=== PATIENT | female | born 1975 | race Caucasian/White ===

== ENCOUNTER 2016-10-26 17:15 | Emergency (ER) | payer OTHER ==
[2016-10-26] MEDS ORDERED: OXYCODONE-ACETAMINOPHEN 5-325 MG TABLET PO ONE (18:20)
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
[2016-10-26 20:21] VITALS: BP 122/65
== END 2016-10-26 20:25 | disposition home or self-care (01) ==
LOC: ER 17:15
DX: S99.921A Unspecified injury of right foot, initial encounter (principal); M79.671 Pain in right foot; V03.00XA Pedestrian on foot injured in collision with car, pick-up truck or van in nontraffic accident, initial encounter
CPT/HCPCS: 99283

== ENCOUNTER 2017-02-10 16:32 | Observation (INO) | payer OTHER ==
[2017-02-10] MEDS ORDERED: OXYCODONE-ACETAMINOPHEN 5-325 MG TABLET PO ONE (18:04)
[2017-02-10] MEDS ORDERED: ONDANSETRON 4 MG TAB.RAPDIS PO ONE (18:05)
--- NOTE | 2017-02-10 18:07 | ER Document Report ---
ED Medical Screen (RME) - General Chief Complaint: Abdominal Pain Stated Complaint: STOMACH PAIN RIGHT SIDE Time Seen by Provider: 02/10/17 18:03 Mode of Arrival: Ambulatory Information source: Patient Notes: Patient is a 41-year-old female with right upper quadrant pain 3 days. Patient still has her gallbladder, does not have her appendix and has had a hysterectomy. Patient admits to nausea with the sharp pain that comes intermittently but states that there is always a dull pain there. She denies vomiting or diarrhea. TRAVEL OUTSIDE OF THE [place] IN LAST 30 DAYS: No - Related Data Allergies/Adverse Reactions: Penicillins Allergy (Severe, Verified 02/10/17 17:58) Past Medical History - General Information source: Patient - Social History Chew tobacco use (# tins/day): No Frequency of alcohol use: None Drug Abuse: None Neurological Medical History: Reports: Hx Migraine Renal/ Medical History: Reports: Hx Kidney Stones. Denies: Hx Peritoneal Dialysis GI Medical History: Reports: Hx Gastroesophageal Reflux Disease Musculoskeltal Medical History: Reports Hx Musculoskeletal Trauma Past Surgical History: Reports: Hx Appendectomy, Hx Section, Hx Cholecystectomy, Hx Hysterectomy, Hx Thyroid Surgery - Immunizations Immunizations up to date: Yes Hx Diphtheria, Pertussis, Tetanus Vaccination: Yes - 2010 History of Influenza Vaccine for 02/2017 - 07/2017 Season: No Review of Systems - Review of Systems Gastrointestinal: No symptoms reported Physical Exam - Vital signs Vitals: Temp Pulse Resp BP Pulse Ox 98.8 F 85 18 129/70 H 100 02/10/17 17:17 02/10/17 17:17 02/10/17 17:17 02/10/17 17:17 02/10/17 17:17 - Notes Notes: PHYSICAL EXAMINATION: GENERAL: Uncomfortable, holding right side, but in no acute distress. ABDOMEN: Soft, right upper quadrant tenderness. No guarding, no rebound Course - Vital Signs Vital signs: Temp Pulse Resp BP Pulse Ox 98.8 F 85 18 129/70 H 100 02/10/17 17:17 02/10/17 17:17 02/10/17 17:17 02/10/17 17:17 02/10/17 17:17
[2017-02-10 18:49] LABS: ABSOLUTE BASOPHILS # (AUTO) 0.1 10^3/uL (0.0-0.2); ABSOLUTE EOSINOPHILS # (AUTO) 0.2 10^3/uL (0.0-0.6); ABSOLUTE LYMPHOCYTES (AUTO) 2.2 10^3/uL (0.5-4.7); ABSOLUTE MONOCYTES (AUTO) 0.4 10^3/uL (0.1-1.4); ABSOLUTE NEUT (AUTO) 5.2 10^3/uL (1.7-8.2); BASOPHILS % (AUTO) 0.8 % (0-2); EOSINOPHILS % (AUTO) 1.9 % (0-6); HEMATOCRIT 42.2 % (36.0-47.0); HEMOGLOBIN 14.4 g/dL (12.0-15.5); LYMPHOCYTES % (AUTO) 27.7 % (13-45); MEAN CORPUSCULAR HEMOGLOBIN 29.9 pg (27.0-33.4); MEAN CORPUSCULAR HGB CONC 34.2 g/dL (32.0-36.0); MEAN CORPUSCULAR VOLUME 88 fl (80-97); MONOCYTES % (AUTO) 5.1 % (3-13); RED BLOOD COUNT 4.82 10^6/uL (3.72-5.28); RED CELL DISTRIBUTION WIDTH 13.4 % (11.5-14.0); SEGMENTED NEUTROPHILS % (AUTO) 64.5 % (42-78)
[2017-02-10 18:59] LABS: APPEARANCE,URINE SLIGHTLY-CLOUDY; BILIRUBIN,URINE NEGATIVE (NEGATIVE); GLUCOSE, URINE NEGATIVE (NEGATIVE); KETONES,URINE NEGATIVE (NEGATIVE); LEUKOCYTE ESTERASE,URINE NEGATIVE (NEGATIVE); NITRITE,URINE NEGATIVE (NEGATIVE); PROTEIN,URINE NEGATIVE (NEGATIVE); URINE SPECIFIC GRAVITY 1.028; UROBILINOGEN,URINE NEGATIVE mg/dL (<2.0)
[2017-02-10 19:09] LABS: ALANINE AMINOTRANSFERASE 28 U/L (9-52); ALBUMIN 4.5 g/dL (3.5-5.0); ALKALINE PHOSPHATASE 90 U/L (38-126); ANION GAP 12 (5-19); ASPARTATE AMINO TRANSFERASE 19 U/L (14-36); BILIRUBIN,DIRECT 0.3 mg/dL (0.0-0.4); BILIRUBIN,TOTAL 0.4 mg/dL (0.2-1.3); BLOOD UREA NITROGEN 18 mg/dL (7-20); CALCIUM 9.6 mg/dL (8.4-10.2); CARBON DIOXIDE 30 mmol/L (22-30); CHLORIDE 106 mmol/L (98-107); CREATININE RESULT 0.71 mg/dL (0.52-1.25); GLUCOSE 99 mg/dL (75-110); LIPASE 77.6 U/L (23-300); POTASSIUM 4.3 mmol/L (3.6-5.0); TOTAL PROTEIN 7.4 g/dL (6.3-8.2)
[2017-02-10] MEDS ORDERED: NORMAL SALINE 1000 ML 1,000 ML IV PRN (20:38)
[2017-02-10] MEDS ORDERED: MORPHINE SULFATE 10 MG/ML INJ IV ONE ×2 (20:39→23:26)
[2017-02-10] MEDS ORDERED: ONDANSETRON HCL INJ/PF 4 MG/2 ML SDV IV ONE ×2 (20:39→23:26)
--- NOTE | 2017-02-10 21:30 | RADIOLOGY REPORT (SQ) ---
EXAM DESCRIPTION: U/S ABDOMEN LIMITED W/O DOP COMPLETED DATE/TIME: 02/10/2017 9:18 pm REASON FOR STUDY: ruq pain COMPARISON: 07/11/2015 TECHNIQUE: Dynamic and static grayscale images acquired of the abdomen and recorded on PACS. Additio nal selected color Doppler and spectral images recorded. LIMITATIONS: None. FINDINGS: PANCREAS: Not visualized. LIVER: 1.9 cm hepatic cyst. Fatty infiltration. No worrisome masses. LIVER VASCULATURE: Normal directional flow of the main portal vein and hepatic veins. GALLBLADDER: Gallbladder sludge. No thickening of the gallbladder wall. ULTRASOUND-DETECTED VARGAS'S SIGN: Negative. INTRAHEPATIC DUCTS AND COMMON DUCT: CBD and intrahepatic ducts normal caliber. No filling defects. INFERIOR VENA CAVA: Normal flow. AORTA: No aneurysm. RIGHT KIDNEY: Not imaged. PERITONEAL AND RIGHT PLEURAL SPACE: No ascites or effusions. OTHER: No other significant findings. IMPRESSION: Fatty liver. 1.9 cm left lobe hepatic cysts. Sludge in the gallbladder. TECHNICAL DOCUMENTATION: JOB ID: [id number]- All Rights Reserved
--- NOTE | 2017-02-11 00:16 | RADIOLOGY REPORT (SQ) ---
EXAM DESCRIPTION: CT ABD/PELVIS WITH IV ONLY COMPLETED DATE/TIME: 02/10/2017 11:20 pm REASON FOR STUDY: abd pain COMPARISON: None. TECHNIQUE: CT scan of the abdomen and pelvis performed using helical scanning technique with dynamic intravenous contrast injection. No oral contrast. Images reviewed with lung, soft tissue, and bone windows. Reconstructed coronal and sagittal MPR images reviewed. Delayed images for evaluation of the urinary system also acquired. All images stored on PACS. All CT scanners at this facility use dose modulation, iterative reconstruction, and/or weight based d osing when appropriate to reduce radiation dose to as low as reasonably achievable (ALARA). [facility]: Dose Right [facility]: CareDose [facility]: Dose Right [facility]: Teradose 4D [facility]: Abeelo CONTRAST TYPE AND DOSE: contrast/concentration: Isovue 370.00 mg/ml; Total Contrast Delivered: 100.0 ml; Total Saline Delivered: 40.0 ml RENAL FUNCTION: Creatinine 0 point RADIATION DOSE: Up-to-date CT equipment and radiation dose reduction techniques were employed. CTDIv ol: 21.1 mGy. DLP: 2463 mGy-cm.. LIMITATIONS: None. FINDINGS: LOWER CHEST: No significant findings. No nodules or infiltrates. LIVER: Normal size. No masses. No dilated ducts. Likely benign low attenuation lesions measuring up to 2.9 cm each consistent with hepatic cysts and concurrent sonogram. SPLEEN: Normal size. No focal lesions. PANCREAS: No masses. No significant calcifications. No adjacent inflammation or peripancreatic fluid collections. Pancreatic duct not dilated. GALLBLADDER: No identified stones by CT criteria. No inflammatory changes to suggest cholecystitis. ADRENAL GLANDS: No significant masses or asymmetry. RIGHT KIDNEY AND URETER: No solid masses. No significant calcifications. No hydronephrosis or hyd roureter. LEFT KIDNEY AND URETER: No solid masses. No significant calcifications. No hydronephrosis or hydr oureter. AORTA AND VESSELS: No aneurysm. No dissection. Renal arteries, SMA, celiac without stenosis. RETROPERITONEUM: No retroperitoneal adenopathy, hemorrhage or masses. BOWEL AND PERITONEAL CAVITY: Herniorrhaphy repair of the anterior abdominal-pelvic wall with possible adhesive disease involving small bowel. Nonspecific nondistended left colon and sigmoid. Scant pro minence of mesenteric lymph nodes, nonspecific. APPENDIX: No evidence of appendicitis. Appendix surgically removed. PELVIS: No mass. No free fluid. Normal bladder. Uterus surgically removed. ABDOMINAL WALL: No masses. No hernias. BONES: No significant or acute findings. OTHER: No other significant finding. IMPRESSION: No acute findings. Herniorrhaphy repair of the abdominal- pelvic wall. Possible adhesi ve disease of small bowel without acute complication. TECHNICAL DOCUMENTATION: JOB ID: [id number] Quality ID # [id number]: Final reports with documentation of one or more dose reduction techniques (e.g., Au tomated exposure control, adjustment of the mA and/or kV according to patient size, use of iterative reconstruction technique) 2010 [employer]- All Rights Reserved
[2017-02-11] MEDS ORDERED: LEVOFLOXACIN 500 MG/D5W RTU 500 MG/100 ML RTUPB IV ONE (00:32)
--- NOTE | 2017-02-11 00:40 | ER Document Report ---
ED General - General Chief Complaint: Abdominal Pain Stated Complaint: STOMACH PAIN RIGHT SIDE Time Seen by Provider: 02/10/17 18:03 Mode of Arrival: Ambulatory Information source: Patient Notes: This is a 41-year-old female presents to the emergency room with upper right abdominal pain for the past 2 days. Patient denies fever. Patient does state that she has had a history of gallstones in the past. TRAVEL OUTSIDE OF THE [place] IN LAST 30 DAYS: No - Related Data Allergies/Adverse Reactions: Penicillins Allergy (Severe, Verified 02/10/17 17:58) Past Medical History - General Information source: Patient - Social History Smoking Status: Unknown if Ever Smoked Chew tobacco use (# tins/day): No Frequency of alcohol use: None Drug Abuse: None Family History: CAD, Malignancy Patient has suicidal ideation: No Patient has homicidal ideation: No Neurological Medical History: Reports: Hx Migraine Renal/ Medical History: Reports: Hx Kidney Stones. Denies: Hx Peritoneal Dialysis GI Medical History: Reports: Hx Gastroesophageal Reflux Disease Musculoskeltal Medical History: Reports Hx Musculoskeletal Trauma Past Surgical History: Reports: Hx Appendectomy, Hx Section, Hx Cholecystectomy, Hx Hysterectomy, Hx Thyroid Surgery - Immunizations Immunizations up to date: Yes Hx Diphtheria, Pertussis, Tetanus Vaccination: Yes - 2010 Physical Exam - Vital signs Vitals: Temp Pulse Resp BP Pulse Ox 98.8 F 85 18 129/70 H 100 02/10/17 17:17 02/10/17 17:17 02/10/17 17:17 02/10/17 17:17 02/10/17 17:17 Notes: Physical exam: GENERAL: 41-year-old female, alert and oriented 3, appears uncomfortable HEAD: Atraumatic, normocephalic. EYES: Pupils equal round and reactive to light, extraocular movements intact, sclera anicteric, conjunctiva are normal. ENT: TMs normal, nares patent, oropharynx clear without exudates. Moist mucous membranes. NECK: Normal range of motion, supple without obvious mass or JVD. LUNGS: Breath sounds clear to auscultation bilaterally and equal. No wheezes rales or rhonchi. HEART: Regular rate and rhythm without murmurs, rubs or gallops. ABDOMEN: Soft, right upper abdominal tenderness. No guarding, no rebound. No masses appreciated. EXTREMITIES: Normal range of motion, no pitting or edema. No clubbing or cyanosis. NEUROLOGICAL: Cranial nerves II through XII grossly intact. Normal speech, moving all extremities. PSYCH: Normal mood, normal affect. SKIN: Warm, Dry, normal turgor, no rashes or lesions noted. Course - Re-evaluation Re-evalutation: 02/11/17 00:38 Clinically, the patient has a lot of right upper quadrant tenderness concerning for acute cholecystitis. CT showed no acute intra-abdominal pathology. The ultrasound showed sludge. I am concerned after reviewing the ultrasound that she may be developing pericholecystic fluid. I discussed the case with Dr. Borgesas is going to bring the patient into the hospital for further evaluation (possible HIDA in the morning, etc.). - Vital Signs Vital signs: Temp Pulse Resp BP Pulse Ox 97.8 F 91 18 127/96 H 99 02/10/17 21:20 02/10/17 23:41 02/10/17 23:41 02/10/17 23:41 02/10/17 23:41 - Laboratory Result Diagrams: 02/10/17 18:30 02/10/17 18:30 Laboratory results interpreted by me: 02/10/17 18:30 Sodium 148.0 H - Diagnostic Test Radiology reviewed: Image reviewed, Reports reviewed - The gallbladder ultrasound is interpreted as large. It appears to me that there may be the beginnings of some pericholecystic fluid. Discharge - Discharge Clinical Impression: Acute cholecystitis Condition: Stable Disposition: ADMITTED INPATIENT Admitting Provider: Surgicalist - Dr. Jha Unit Admitted: Surgical Floor
[2017-02-11] MEDS ORDERED: DEXTROSE 5%-LACTATED RINGERS 1,000 ML IV PRN (02:06)
[2017-02-11] MEDS: ONDANSETRON HCL INJ/PF 4 MG/2 ML SDV IV SCH ×2 (02:10→14:35)
[2017-02-11] MEDS ORDERED: ONDANSETRON HCL INJ/PF 4 MG/2 ML SDV IV SCH (02:15)
[2017-02-11] MEDS ORDERED: MORPHINE SULFATE 10 MG/ML INJ IV SCH (03:00)
[2017-02-11] MEDS ORDERED: ONDANSETRON HCL INJ/PF 4 MG/2 ML SDV IV ONE (03:00)
[2017-02-11] MEDS ORDERED: MORPHINE SULFATE 10 MG/ML INJ IV ONE (03:00)
[2017-02-11] MEDS ORDERED: ACETAMINOPHEN 325 MG TABLET ONE (06:18)
[2017-02-11] MEDS ORDERED: ACETAMINOPHEN 325 MG TABLET PO ONE (06:45)
--- NOTE | 2017-02-11 06:54 | PDOC H&P ---
History of Present Illness Admission Date/PCP: 02/11/17 00:47 Patient complains of: Abdominal pain History of Present Illness: BRIAN BLAIR is a 41 year old female presents to the emergency department complaining of worsening abdominal pain epigastric associated with some anorexia and nausea no vomiting. She has had previous episodes over the last year possibly more. She was seen in the emergency department where she underwent gallbladder ultrasonography which showed sludge. Because of persisting pain nausea, she was admitted to the surgical service for definitive management. There is a strong family history of gallbladder disease in her son and father. Past Medical History Neurological Medical History: Reports: Migraine Endocrine History Note: Moderate obesity GI Medical History: Reports: Gastroesophageal Reflux Disease Past Surgical History Past Surgical History: Reports: Appendectomy, Section, Cholecystectomy , Hysterectomy, Other - Hemithyroidectomy; abdominal wall mesh placement Social History Smoking Status: Never Smoker Frequency of Alcohol Use: Occasional Hx Recreational Drug Use: No Drugs: None Hx Prescription Drug Abuse: No Family History Family History: CAD, Malignancy Parental Family History Reviewed: Yes Children Family History Reviewed: Yes Sibling(s) Family History Reviewed.: Yes Medication/Allergy Home Medications: No Home Medications 1 mg PO DAILY 02/19/13 Docusate Sodium [Colace 100 mg Capsule] 100 mg PO DAILY #30 capsule 11/15/13 Nitrofurantoin/Nitrofuran Mac [Macrobid 100 mg Capsule] 100 mg PO BID #20 capsule 11/15/13 Ondansetron [Zofran Odt 4 mg Tablet] 1 - 2 tab PO Q4H PRN #15 tab.rapdis Oxycodone HCl/Acetaminophen [Percocet 5-325 mg Tablet] 1 - 2 tab PO Q4H PRN #25 tablet 11/15/13 Hydrocodone/Acetaminophen [[place] 5-325 mg Tablet] 1 - 2 tab PO ASDIR #15 tablet 07/25/14 Prednisone [Deltasone 10 mg Tablet] 10 mg PO ASDIR PRN #21 tablet 07/25/14 Hydrocodone/Acetaminophen [[place] 5-325 mg Tablet] 1 tab PO Q6H PRN #10 tablet Ondansetron [Zofran Odt 4 mg Tablet] 1 tab PO Q4H PRN #15 tab.rapdis 11/11/14 Metoclopramide HCl [Reglan 10 mg Tablet] 10 mg PO Q8 PRN #30 tablet 07/12/15 Oxycodone HCl/Acetaminophen [Percocet 5-325 mg Tablet] 1 tab PO ASDIR PRN #15 tablet 02/17/16 Allergies/Adverse Reactions: Penicillins Allergy (Severe, Verified 02/10/17 17:58) Review of Systems Constitutional: PRESENT: as per HPI Eyes: ABSENT: visual disturbances Ears: ABSENT: hearing changes Nose, Mouth, and Throat: PRESENT: as per HPI Cardiovascular: ABSENT: chest pain, dyspnea on exertion, edema, orthropnea, palpitations Respiratory: ABSENT: cough, hemoptysis Gastrointestinal: PRESENT: other - As per HPI; previous abdominal wall surgery with mesh; denies colonoscopy; history of GERD Neurological: ABSENT: abnormal gait, abnormal speech, confusion, dizziness, focal weakness, syncope Psychiatric: ABSENT: anxiety, depression, homidical ideation, suicidal ideation Physical Exam Vital Signs: Temp Pulse Resp BP Pulse Ox 97.5 F 76 20 123/57 L 98 02/11/17 03:36 02/11/17 03:36 02/11/17 03:36 02/11/17 03:36 02/11/17 03:36 General appearance: PRESENT: mild distress Head exam: PRESENT: normocephalic Eye exam: PRESENT: EOMI Ear exam: PRESENT: TM's normal bilaterally Mouth exam: PRESENT: dry mucosa Neck exam: PRESENT: full ROM Respiratory exam: PRESENT: clear to auscultation ramakrishna Cardiovascular exam: PRESENT: RRR Pulses: PRESENT: +2 pedal pulses bilateral Vascular exam: PRESENT: normal capillary refill GI/Abdominal exam: PRESENT: other - Midline scar below the umbilicus consistent with previous surgery; smaller peripheral laparoscopic scars. Abdomen is moderately tender right upper quadrant to deep palpation Rectal exam: PRESENT: deferred Extremities exam: PRESENT: full ROM Musculoskeletal exam: PRESENT: full ROM Neurological exam: PRESENT: alert, awake, oriented to person, oriented to place Skin exam: PRESENT: dry Results Impressions: Abdomen Ultrasound 02/10/17 18:03 IMPRESSION: Fatty liver. 1.9 cm left lobe hepatic cysts. Sludge in the gallbladder. Abdomen/Pelvis CT 02/10/17 22:17 IMPRESSION: No acute findings. Herniorrhaphy repair of the abdominal- pelvic wall. Possible adhesive disease of small bowel without acute complication. Assessment & Plan - Diagnosis (1) Gallstones without obstruction of gallbladder Qualifiers: Cholelithiasis location: gallbladder Cholecystitis presence: with cholecystitis Cholecystitis acuity: acute and chronic Qualified Code(s): K80.12 - Calculus of gallbladder with acute and chronic cholecystitis without obstruction Is this a current diagnosis for this admission?: Yes Plan: Plan: 1. Admit, n.p.o., IV fluids, IV antibiotics 2. Plan for interval laparoscopic, possible open cholecystectomy, 1 hour, no draining, Dr. Cano the surgical list of the day will perform procedure and this was explained to the patient. Because of previous abdominal surgery, placement of mesh, patient at increased risk for conversion to open procedure; this was explained to the patient. (2) Obesity Is this a current diagnosis for this admission?: Yes - Time Time Spent: 50 to 70 Minutes Critical Time spent with patient: 15-24 minutes Medications reviewed and adjusted accordingly: Yes Anticipated discharge: Home - Inpatient Certification Medical Necessity: Need For IV Fluids, Need for Pain Control, Need for IV Antibiotics, Need for Surgery
[2017-02-11] MEDS ORDERED: CEFAZOLIN 1 GM/D5W RTU 1 GM/50 ML RTUPB IV ONE (07:00)
[2017-02-11] MEDS ORDERED: FENTANYL CITRATE INJ/PF 100 MCG/2 ML AMPUL ONE ×2 (07:27→10:30)
[2017-02-11] MEDS ORDERED: FENTANYL CITRATE INJ/PF 250 MCG/5 ML AMPULE ONE (07:27)
[2017-02-11] MEDS ORDERED: MIDAZOLAM 2 MG/2 ML INJ ONE (07:28)
[2017-02-11] MEDS ORDERED: PROPOFOL INJ 200 MG/20 ML VIAL IV ONE (07:28)
[2017-02-11] MEDS ORDERED: ACETAMINOPHEN 0 ML IV ONE (07:28)
[2017-02-11] MEDS ORDERED: ONDANSETRON HCL INJ/PF 4 MG/2 ML SDV ONE (07:46)
[2017-02-11] MEDS ORDERED: LIDOCAINE 2% INJ-PF (20 MG/ML) 10 ML AMPUL ONE (07:46)
[2017-02-11] MEDS ORDERED: NEOSTIGMINE METHYLSULFATE 10 MG/10 ML VIAL ONE (07:46)
[2017-02-11] MEDS ORDERED: GLYCOPYRROLATE INJ 0.4 MG/2 ML VIAL ONE (07:46)
[2017-02-11] MEDS ORDERED: DEXAMETHASONE SOD PHOSPHATE INJ 4 MG/1 ML VIAL ONE (07:46)
[2017-02-11] MEDS: MORPHINE SULFATE 10 MG/ML INJ IV SCH ×2 (07:48→14:35)
[2017-02-11] MEDS ORDERED: FAMOTIDINE INJ/PF 20 MG/2 ML SDV IV ONE (08:09)
--- NOTE | 2017-02-11 08:15 | EKG REPORT ---
SEVERITY:- BORDERLINE ECG - SINUS RHYTHM BORDERLINE T ABNORMALITIES, ANTERIOR LEADS : Confirmed by: Jeyson Browne MD 11-Feb-2017 08:14:55
[2017-02-11] MEDS ORDERED: PROMETHAZINE HCL INJ 25 MG/1 ML VIAL IV PRN (09:07)
[2017-02-11] MEDS ORDERED: FENTANYL CITRATE INJ/PF 100 MCG/2 ML AMPUL IV PRN ×3 (09:07)
[2017-02-11] MEDS ORDERED: DIPHENHYDRAMINE HCL 50 MG/ML VIAL IV PRN (09:07)
[2017-02-11] MEDS: BUPIVACAINE HCL 0.25 % INJ/PF (2.5 MG/1 ML) 30 ML VIAL ONE ×2 (09:09→09:43)
--- NOTE | 2017-02-11 10:27 | OPERATIVE REPORT E ---
Operative Report NAME: BRIAN BLAIR : 1975 AGE: 41Y DATE OF SURGERY: 02/11/2017 ROOM: 210 PREOPERATIVE DIAGNOSIS: Acute calculous cholecystitis. POSTOPERATIVE DIAGNOSIS: Acute calculous cholecystitis. PROCEDURE: Laparoscopic cholecystectomy. SURGEON: JESUS PALOMO M.D. ANESTHESIA: General. INDICATION: This is a 41-year-old female with right upper quadrant pains. Ultrasound showed gallstones. DESCRIPTION OF PROCEDURE: After adequate general anesthesia, patient was placed in supine position and the abdomen prepped and draped in the usual sterile fashion. Appropriate timeout was called. Next, a midline incision just above the umbilicus was made and the fascia identified and divided. An Franky trocar was then inserted through the abdominal cavity and CO2 insufflated to a pressure of 15 mmHg. Next, the gallbladder was then identified and noted to be distended. Three other trocars were then placed, a 12 mm in the subxiphoid and two 5 mm in the right upper quadrant. An attempt to grab the gallbladder was done, but unable to do so because of it being quite tense. Because of this, it was then aspirated with a long needle, aspirating about 60 mL of greenish bile. A specimen was then sent for culture. Next, this time, the gallbladder was easily grasped and pulled over the liver. The infundibulum was then pulled up and there is still an area of part of the infundibulum that is encased in peritoneum. Peritoneum was then lysed with the use of Harmonic eddie. Cystic duct was then dissected and clipped with Hemoclips and divided between the Hemoclips. Cystic artery also identified and clipped proximally and divided and cauterized with the use of Harmonic eddie. The gallbladder was then taken off the liver bed with use of Harmonic eddie. It was then placed in an Endobag and pulled out through the umbilical port. Next, the trocar was put back in the umbilical area and the camera also replaced back into the umbilical port. Inspection of the liver bed was then performed and no evidence of active bleeding noted. The trocar sites were then removed and CO2 allowed to come out through the trocar sites. The fascial defect was then closed with figure of eight suture using 0 Vicryl and all the skin incisions closed with running subcuticular closure using 4-0 Vicryl undyed. *------* dressing was used. Just to mention, there was some adhesion around the umbilical area during the procedure and these were left in place. Patient tolerated the procedure well, brought to the recovery room in satisfactory condition. Estimated blood loss was about 10 mL. DICTATING PHYSICIAN: JESUS PALOMO M.D. [id number] PHY#: [id number] ID: [id number] JOB#: [id number] ACCT: [id number] cc:JESUS PALOMO M.D. >
[2017-02-11] MEDS ORDERED: ONDANSETRON HCL INJ/PF 4 MG/2 ML SDV IV PRN (14:51)
[2017-02-11] MEDS ORDERED: MORPHINE SULFATE 10 MG/ML INJ IV PRN (14:57)
[2017-02-11] MEDS: CEFAZOLIN 1 GM/D5W RTU 1 GM/50 ML RTUPB IV SCH ×2 (15:06→21:11)
[2017-02-11] MEDS: OXYCODONE-ACETAMINOPHEN 5-325 MG TABLET PO PRN ×2 (15:33→20:52)
[2017-02-12] MEDS ORDERED: ACETAMINOPHEN 325 MG TABLET ONE (06:13)
[2017-02-12] MEDS: CEFAZOLIN 1 GM/D5W RTU 1 GM/50 ML RTUPB IV SCH (06:26)
[2017-02-12] MEDS ORDERED: ACETAMINOPHEN 325 MG TABLET PO ONE (07:00)
--- NOTE | 2017-02-12 07:48 | DISCHARGE SUMMARY E ---
Discharge Summary NAME: BRIAN BLAIR : 1975 AGE: 41Y ADMITTED: 02/11/2017 DISCHARGED: 02/12/2017 FINAL DIAGNOSIS: Acute cholecystitis. PROCEDURE DONE: Laparoscopic cholecystectomy by Dr. Raymundo on 02/11/2017. HOSPITAL COURSE: This 41-year-old female underwent laparoscopic cholecystectomy on 02/11/2017 for acute cholecystitis. Surgeon is Dr. Raymundo. On 02/12/2017, patient doing well and tolerating soft diet and with minimal pains. She was then discharged improved with above final diagnosis. Prescription for Percocet to take p.r.n. for pain. Also, a note for work in 2 weeks. Further followup in the surgical clinic in 2 weeks. DICTATING PHYSICIAN: JSEUS RAYMUNDO M.D. [id number] PHY#: [id number] ID: [id number] JOB#: [id number] ACCT: [id number] cc:Lucretia LEE M.D. >
[2017-02-12 08:20] VITALS: BP 123/57
== END 2017-02-12 08:38 | disposition home or self-care (01) ==
LOC: ER 16:32 → INTOOBSV 02-11 00:47 → EH 02-11 00:47 → 2N 02-11 03:32
PROVIDERS: ATTEND Surgery
PROC: 0FT44ZZ Resection of Gallbladder, Percutaneous Endoscopic Approach (ICD-10-PCS; principal; 2017-02-11 08:00)
DX: K81.1 Chronic cholecystitis (principal); E66.9 Obesity, unspecified; K76.0 Fatty (change of) liver, not elsewhere classified; K76.89 Other specified diseases of liver; Z90.49 Acquired absence of other specified parts of digestive tract; Z98.890 Other specified postprocedural states; Z90.710 Acquired absence of both cervix and uterus; Z80.9 Family history of malignant neoplasm, unspecified; Z87.19 Personal history of other diseases of the digestive system; Z87.442 Personal history of urinary calculi; Z68.41 Body mass index [BMI] 40.0-44.9, adult
CPT/HCPCS: 93005; 99285; 96361; 96374; 36415; 87040; 87205; 87070; 83690; 85025; 87075; 80053; 81001; 88304 ×2; 76705; 74177; 93010; 47562; J2250; J1956; J0690; J1100; S0119; J3010 ×2; J2270; J2405 ×2; J7030; J2704; S0028; J3490; 790; J0131